=== PATIENT | male | born 1990 | race Caucasian/White ===

== ENCOUNTER → 2019-01-30 12:24 | Outpatient (CLI) | payer BC, SELFPAY ==
[2019-01-30 11:51] VITALS: BMI 24.3
[2019-01-30 13:25] LABS: Anion Gap 6 (5-15); BUN 17 mg/dL (7-18); BUN/Creat Ratio 17.9 RATIO (10-20); Calcium,Total 9.1 mg/dL (8.5-10.1); Chloride 106 mmol/L (98-107); Creatinine, Serum 0.95 mg/dL (0.70-1.30); EST Glomerular Filtration Rate 100 mL/min (>60); Est Glom Filt Rate - Afr Amer 121 mL/min (>60); Glucose 88 mg/dL (74-106); Magnesium 2.3 mg/dL (1.6-2.6); Potassium 4.1 mmol/L (3.5-5.1); Sodium Level 142 mmol/L (136-145)
== END ==
PROVIDERS: Referring Provider Specialist; Visit Provider Specialist
DX: R00.2 Palpitations (principal)
CPT/HCPCS: 36415; 80048; 83735

== ENCOUNTER → 2019-01-31 | Outpatient (REF) | payer BC, SELFPAY ==
[2019-01-30 11:51] VITALS: BMI 24.3
== END | disposition home or self-care (01) ==
LOC: CVS 13:14
PROVIDERS: Referring Provider Specialist; Visit Provider Specialist
DX: R00.2 Palpitations (principal)
CPT/HCPCS: 93270

== ENCOUNTER → 2019-03-20 12:55 | Outpatient (CLI) | payer BC, SELFPAY ==
[2019-03-20 11:55] VITALS: BMI 24.3
[2019-03-20 14:41] LABS: Vitamin D,25 Hydroxy 26.5 ng/mL (29.95-100.01)
[2019-03-20 14:43] LABS: Free T3 2.8 pg/mL (2.18-3.98); T4 Total, Thyroxin 7.9 ug/dL (4.5-12.1)
== END ==
PROVIDERS: Referring Provider Specialist; Visit Provider Specialist
DX: R00.2 Palpitations (principal)
CPT/HCPCS: 36415; 82306; 84436; 84443; 84481